=== PATIENT | female | born 2000 | race Caucasian/White ===

== ENCOUNTER 2025-04-23 07:40 | Inpatient (IN) ==
[2025-04-23] MEDS ORDERED: OXYTOCIN 30 UNITS/NSS 30 UNITS/500 ML BAG IV PRN ×2 (07:48→16:34)
--- NOTE | 2025-04-23 07:54 | History & Physical Report ---
Date of Service April 23, 2025 Assessment & Plan (1) Gestational diabetes: (2) Encounter for induction of labor: Plan Plan pit induction. arom when appropriate, epidural on demand, fetus category one. anticipate . Admission and Anticipated Discharge Date Admission Date: April 23, 2025 History of Present Illness Chief Complaint: iol Primary Care Provider: REGINA Kim Pateint is a at 40 0/7 who presents for iol. Notes good fm. Occasional contractions. no lof, vb. cx favorable in the office yesterday. and Delivery Plans Hepatitis B not immune Low-Lying placenta Posterior/WNL at 32wk. Gestational Diabetes Growth u/s's q 4 weeks PD IOL 04/23/2025 OB Labs: Blood Type A Positive 09/16/24 Antibody Screen NEGATIVE 09/16/24 Hgb 11.9 g/dl (12.0-16.0) L 02/04/25 Hct 34.5 % (37.0-47.0) L 02/04/25 MCV 90.1 fL (80.0-100.0) 09/16/24 Plt Count 248 K/uL (130-400) 09/16/24 Rubella IgG Antibody Immune (Immune) 09/16/24 Treponema pallidum Ab Negative (Negative) 02/04/25 Hep Bs Antigen Negative (Negative) 09/16/24 Hepatitis C Antibody Negative (Negative) 09/16/24 HIV 1&2 Ab/P24 Ag 4thGn Negative (Negative) 09/16/24 Glucose 1 Hr 50 gm 146 mg/dl (70-130) H 11/04/24 Maternal Serum AFP 33.6 ng/mL 11/04/24 OB Optional Labs: Chlamydia trachomatis RNA Not Detected (NotDetected) 09/16/24 Neisseria gonorrhoeae RNA Not Detected (NotDetected) 09/16/24 Thyroid Stimulating Hormone (TSH) 2.792 uIu/ml (0.300-4.500) 06/25/23 Alpha Fetoprotein Triple Screen SEE NOTE 11/04/24 gbs neg low risk panorama horizon 14 negative. afp neg failed 2 hr gtt Allergies Allergy/AdvReac Type Severity Reaction Status Date / Time No Known Drug Allergies Allergy Verified 04/15/25 09:00 Home Medications Medication Instructions Recorded Confirmed Type albuterol sulfate 90 mcg/actuation 2 puff inhalation Q6H PRN dyspnea 11/02/21 04/22/25 Rx aerosol inhaler #8.5 grams budesonide 90 mcg/actuation breath 1 inh inhalation BID #1 ea 11/02/21 04/22/25 Rx activated powder inhaler fluticasone propionate 50 2 spray intranasal DAILY #16 grams 11/02/21 04/22/25 Rx mcg/actuation nasal spray,suspension montelukast 10 mg tablet 10 mg PO DAILY #30 tabs 11/02/21 04/22/25 Rx prenat.vits,juanito,bhq-shhr-tcpiv tab PO 09/10/24 04/22/25 History blood sugar diagnostic (Accu-Chek #150 ea 02/19/25 04/22/25 Rx Guide test strips) blood-glucose meter (Accu-Chek #1 ea 02/19/25 04/22/25 Rx Guide Glucose Meter) lancets (Accu-Chek Softclix #150 ea 02/19/25 04/22/25 Rx Lancets) lancing device with lancets kit #1 ea 02/19/25 04/22/25 Rx (Accu-Chek FastClix Lancing Device kit) Patient History Medical History (Updated 04/23/25 @ 07:57 by Sana Santana MD, FACOG) Asthma Surgical History No pertinent past surgical history Family History (Updated 12/02/23 @ 11:04 by Shaneka Chau MD) Father Hypertension Hypothyroidism Family/Other Breast cancer Other Autism Denies family history of Ovarian cancer Colorectal cancer Uterine cancer Social History (Updated 09/10/24 @ 11:19 by Maryjo Martinez) Smoking Status: Never smoker Second Hand Exposure: Yes; Do You Dip or Chew Tobacco: No; Hx Alcohol Use: No Hx Substance Use: No marital status: marital status details: Sunny (28) [phone] Current Living Situation: Spouse Current Living Situation Comment: lives with spouse, and spouse family current occupational status: employed current occupation: repair order clerk Feels Safe at Home: Yes caffeine: Yes (tea) Dental Care, Regularly: Yes Physical Activity Frequency: Does not Exercise Seatbelt Use: always Sunscreen Use: No OB History g1--present [employer] History noncontributory Physical Exam Constitutional: WD/WN, vitals as above Gastrointestinal (Abdomen): soft, gravid, nt Psychiatric: A+Ox3, euthymic affect Genitourinary: cx--3./soft/ant toco--chetan efm--145 with mod variability, accels to 160s, no decels Coding Level of Care Code None Diagnoses Gestational diabetes O24.419 Encounter for induction of labor Z34.90
[2025-04-23 08:34] LABS: Hematocrit (blood only) 36.4 % (37.0-47.0); Hemoglobin 12.5 g/dl (12.0-16.0); Mean Corpuscular Hemoglobin 28.8 pg (25.0-34.0); Mean Corpuscular Volume 83.9 fL (80.0-100.0); Platelet Count 206 K/uL (130-400); RDW Standard Deviation 41.2 fL (36.4-46.3); Red Blood Count 4.34 M/uL (4.20-5.40); White Blood Count 11.95 K/ul (4.8-10.8)
[2025-04-23] MEDS: LACTATED RINGER'S 1,000 ML IV PRN (09:33)
[2025-04-23] MEDS: OXYTOCIN 30 UNITS/NSS 30 UNITS/500 ML BAG IV PRN (09:34)
--- NOTE | 2025-04-23 12:00 | Labor Progress Brief Note ---
Date of Service April 23, 2025 Subjective Notes contractions, pain 1-08/24 Assessment & Plan (1) Encounter for induction of labor: Plan continue current management. fetus category one. Admission and Anticipated Discharge Date Admission Date: April 23, 2025 Physical Exam Physical Exam: cx--/-2 arom--clear toco--q1-3min, pit at 8 efm--150s with mod variability, accels to 170s, no decels Results & Data Vital Signs (Past 12 Hours) Vital Signs Temp Pulse Resp BP 04/23/25 11:02 88 04/23/25 11:02 137/86 04/23/25 11:01 93 H 04/23/25 11:01 138/91 04/23/25 11:00 20 04/23/25 11:00 36.8 C 20 04/23/25 09:38 100 H 04/23/25 09:38 129/88 04/23/25 08:01 36.6 C 96 H 20 131/77 04/23/25 07:57 36.6 C 96 H 131/77 Coding Level of Care Code None Diagnoses Encounter for induction of labor Z34.90
[2025-04-23] MEDS: BUPIVACAINE 0.25% PF 30 ML VIAL ONE (15:12)
[2025-04-23] MEDS: fentANYL 2 MCG/ML BUPIVacaine 0.125%-NSS 100ML BAG ONE (15:12)
[2025-04-23] MEDS: LIDOCAINE 2%/EPINEPHRINE 1:200,000 20 ML PF ONE (15:13)
[2025-04-23] MEDS: SODIUM CHLORIDE 0.9% PF INJ 10 ML VIAL ONE (15:13)
[2025-04-23] MEDS: LIDOCAINE 1% LOCAL 20 ML VIAL INFIL PRN (16:15)
--- NOTE | 2025-04-23 16:27 | Delivery Summary ---
Vaginal Delivery Summary Date of Service April 23, 2025 Vaginal Delivery Summary DIAGNOSES: 1. Voss intrauterine at 41w0d gestation. 2. Induction of Labor 2/2 postdatism, gestational diabetes. 3. Group B Streptococcus Neg. PROCEDURE: Spontaneous vaginal delivery and repair of second degreee laceration. SURGEON: Paris Allen MD. PUBLIC POLICY ANALYST: None. ESTIMATED BLOOD LOSS: 107 mL. COMPLICATIONS: None. PLACENTA: Spontaneous and intact with a 3-vessel cord. DISPOSITION: Stable to labor and delivery. DESCRIPTION: The patient pushed well and brought the head to in OA position. The 's head was allowed to deliver with contraction force and no further active pushing, with the perineum protected during this time. There was 1 nuchal cord. The left shoulder was anterior. The shoulders and body delivered without any difficulty, and the was placed on the maternal abdomen. It was vigorous and moving all extremities, and making respiratory efforts. The cord was doubly clamped by the MD and then cut by the FOB. The placenta delivered spontaneously and was noted to be intact and with a 3VC. The cervix, vagina and perineum were examined and were found to have a second degree laceration, which was infiltrated with 10cc plain lidocaine then repaired with 3-0 vicryl in running locked fashion. The fundus was firm and lochia minimal immediately after delivery. [facility] Vaginal Delivery Charge Vaginal Delivery Codes: 06530 global code for the antepartum, delivery, and post-
[2025-04-23] MEDS ORDERED: IBUPROFEN 600 MG TAB PO PRN (16:34)
[2025-04-23] MEDS ORDERED: HYDROCORTISONE ACETATE 25 MG SUPP PR PRN (16:34)
[2025-04-23] MEDS ORDERED: ACETAMINOPHEN 325 MG TAB PO PRN (16:34)
[2025-04-23] MEDS ORDERED: BENZOCAINE 20% SPRY 85 APPLN/85 GM CAN EXT PRN (16:34)
[2025-04-23] MEDS: DIPHTHER/TETAN/PERTUS Vaccine (Tdap, Adol/Adult) 0.5mL IM ONE (16:39)
[2025-04-23] MEDS: DOCUSATE SODIUM 100 MG CAP PO SCH (21:32)
--- NOTE | 2025-04-24 06:15 | Obstetrical Progress Note ---
Date of Service April 24, 2025 Assessment & Plan (1) Gestational diabetes: (2) Not immune to hepatitis B virus: Plan Assessment and plan 24 yo post- day 1 s/p WITH 2ND degree laceration. Fells well today. Vital signs stable Continue post- care Encourage ambulation and Pain controlled with ibuprofen Hgb stable Discharge home tomorrow, follow up with Dr. allen in 6 weeks. Admission and Anticipated Discharge Date Admission Date: April 23, 2025 Supervising Physician Co-Signing Physician Notes Resident Physician Supervision Note: I interviewed and examined the patient. Discussed with Dr. Hare and agree with findings and plan as documented in the note. Any exceptions or clarifications are listed here: [ ] Documented By: Paris Allen MD, FACOG, MSCP Subjective Post- HPI 24 yo post- day 1 s/p with 2nd degree laceration. Ambulation: ambulating normally Voiding: no voiding problems Passing Gas:: Yes Diet Tolerance:: regular diet Lochia:: Small Feeding Type:: breast feeding Current Pain Level: slight pain Resting comfortably this AM in NAD. Denies INGRAM, CP, SOB, N/V/D, LE pain/swelling. Review of Systems Review of Systems: As per HPI. Physical Exam Physical Exam: Post- PE General: patient resting comfortably, NAD, non-toxic in appearance, AA&O x 4, answers questions appropriately. Skin: warm, dry, intact HEENT: NC/AT, anicteric sclera, conjunctiva without injection, moist mucus membranes. Heart: +S1/S2, regular, no m/r/g Lungs: equal air entry bilaterally, no rales/rhonchi/wheezes Abd: +BS, soft, NT/ND, uterine fundus firm at umbilicus. Ext: warm, no clubbing/cyanosis or edema, Albin's neg. Neuro: nonfocal, patient AA&O x 4, speech intact, no facial droop, moving all extremities on command. Results & Data Vital Signs (Past 12 Hours) Vital Signs Temp Pulse Resp BP Pulse Ox O2 Del Method 04/24/25 04:00 36.9 C 93 H 16 117/72 96 Room Air 04/23/25 23:30 37.4 C 96 H 16 116/70 95 Room Air 04/23/25 19:00 Room Air 04/23/25 19:00 36.5 C 104 H 18 134/74 99 Room Air Resident Activity Tracking Resident Involvement: Resident Care Provided Care Provided: Adult Hospital Medicine
[2025-04-24 08:05] LABS: Hematocrit (blood only) 31.8 % (37.0-47.0); Hemoglobin 10.8 g/dl (12.0-16.0); Mean Corpuscular Hemoglobin 28.8 pg (25.0-34.0); Mean Corpuscular Volume 84.8 fL (80.0-100.0); Platelet Count 182 K/uL (130-400); RDW Standard Deviation 43.3 fL (36.4-46.3); Red Blood Count 3.75 M/uL (4.20-5.40); White Blood Count 15.57 K/ul (4.8-10.8)
[2025-04-24] MEDS: PRENATAL VITAMIN 1 TAB PO SCH (08:18)
[2025-04-24] MEDS: MONTELUKAST SODIUM 10 MG TABLET PO SCH (09:40)
[2025-04-24] MEDS: CETIRIZINE HCL 10 MG TABLET PO SCH (09:40)
[2025-04-24 20:59] VITALS: TEMP 97.9
[2025-04-25 00:48] VITALS: O2SAT 98
[2025-04-25 07:20] LABS: Hematocrit (blood only) 31.9 % (37.0-47.0); Hemoglobin 10.7 g/dl (12.0-16.0)
--- NOTE | 2025-04-25 09:18 | Obstetrical Progress Note ---
Date of Service April 25, 2025 Assessment & Plan (1) Encounter for assessment: Plan Patient desires d/c. Meeting milestones. Instructions given. f/u in 6 weeks for pp visit. Day #:: 1 Subjective Ambulation: ambulating normally Voiding: no voiding problems Passing Gas:: Yes Diet Tolerance:: regular diet Lochia:: Small Feeding Type:: breast feeding Pain controlled. Physical Exam Constitutional WD/WN, vitals as above Respiratory normal respiratory effort, lungs clear to auscultation Cardiovascular RRR, no murmur, no edema Extremities: + edema (tr); no calf tenderness Gastrointestinal (Abdomen) soft, nt, nd, ff/nt 1 below u Psychiatric A+Ox3, euthymic affect Results & Data Vital Signs (Past 12 Hours) Vital Signs Temp Pulse Resp BP Pulse Ox O2 Del Method 04/25/25 00:40 36.6 C 92 H 16 106/67 98 Room Air
[2025-04-25 11:03] VITALS: BP 119/77; PULSE 102; RESP 18
== END 2025-04-25 14:25 | disposition home or self-care (01) | DRG 807 ==
LOC: 4S1 07:40 → 4E2 18:42